=== PATIENT | female | born 1935 | race Caucasian/White ===

== ENCOUNTER → 2020-01-22 | Outpatient (CLI) | payer OTHER, MEDICARE | LOC: SJCVC 14:40 | DX: R94.31 Abnormal electrocardiogram [ECG] [EKG] (principal); I10 Essential (primary) hypertension; E78.00 Pure hypercholesterolemia, unspecified; E66.9 Obesity, unspecified; M19.90 Unspecified osteoarthritis, unspecified site; Z79.82 Long term (current) use of aspirin; Z79.899 Other long term (current) drug therapy ==

== ENCOUNTER → 2020-07-27 | Outpatient (CLI) | payer OTHER, MEDICARE | LOC: SJCVCIMAG 09:11 | PROVIDERS: ATTEND Internal Medicine Cardiovascular Disease | DX: I10 Essential (primary) hypertension (principal); I49.3 Ventricular premature depolarization; I49.1 Atrial premature depolarization; E78.49 Other hyperlipidemia ==

== ENCOUNTER → 2020-08-05 | Outpatient (CLI) | payer OTHER, MEDICARE ==
[~2020-08-05] VITALS: Ht 160 cm; Wt 81.6 kg
[~2020-08-05] MED LIST: ATORVASTATIN CA10 MG PO; CELEBREX 200 M200 MG PO; LEXAPRO 10 MG T10 MG PO; NORVASC 2.5 MG2.5 M1 PO
--- NOTE | ~2020-08-05 | D ---
[facility] [place] [address] DISCHARGE SUMMARY Name: CARLTON DO Room #: REG [facility].#: [id number] Admission: 08/05/20 Attend Phys: Srinivas Jerry MD, Discharge: Date of : 35 Report #: [id number] THIS REPORT FOR: cc: Hannah Cason MD, Jennifer L MD Mancuso, Gerald M. MD [facility] ~ THIS REPORT FOR: //name// CC: Srinivas Cason SHORT STAY SUMMARY The patient is an 85-year-old female admitted for cardiac catheterization with an abnormal stress echo suggesting some distal septal hypokinesis and some progressive fatigue with some chest pain with typical and atypical features. The stress test recently has showed a change from the exam of 2018. Also associated with late EKG changes. Compliant with medications, which have been amlodipine, atorvastatin, Lexapro and Celebrex p.r.n. PAST MEDICAL HISTORY: Positive for the hypertension, hypercholesterolemia, DJD. No prior surgeries. SOCIAL HISTORY: Social alcohol use, no drug use, never used tobacco. She lives independently. One cup of coffee a day. Does try to exercise 4 days a week. ALLERGIES: LISINOPRIL, LOSARTAN, SULFA AND TAPE. Laboratory work is unremarkable. Her lipids are favorable. FAMILY HISTORY: Mother had a stroke. Father did have premature coronary artery disease. PHYSICAL EXAM: Pleasant, alert. Blood pressure 124/64, pulse 70s. Eyes reveal xanthelasmas. Arcus senilis is noted. Pharynx is clear. NECK: Shows preserved upstrokes without JVD or bruits. LUNGS: Clear. CARDIAC: Regular rate and rhythm, S1, S2, without murmur or gallop. ABDOMEN: Soft. No HSM or abdominal bruit. EXTREMITIES: No edema. His pulses were intact. NEUROLOGIC: Nonfocal. SKIN: Warm and dry, without xanthoma or ulcer. MUSCULOSKELETAL: Generalized arthritic changes. HOSPITAL COURSE: The patient went to the catheterization lab. Coronary [address] [address] DISCHARGE SUMMARY Name: CARLTON DO Room #: [facility]#: [id number] Admission: 08/05/20 Attend Phys: Srinivas Jerry MD, Discharge: Date of : 35 Report #: [id number] angiography had mild 3-vessel disease. There was some 30-40% distal LAD disease. The right renal artery had a 30% eccentric lesion; the left renal artery was mildly diseased. The left ventricle with normal left ventricular function. She tolerated it well. Mynx closure device was utilized for right femoral artery without complication. She will be observed for fluids for 3 hours and discharged home. DISCHARGE DIAGNOSES: 1. Coronary artery disease (nonobstructive cardiac catheterization). No intervention. 2. Hypertension. 3. Hypercholesterolemia. 4. Degenerative joint disease. RECOMMENDATIONS AND PLAN: No lifting for 48 hours or lying in tub, Jacuzzi or fiore for 5 days. Followup scheduled in 6 months. Also, follow up with her primary care physician as scheduled. Thank you for asking me to assist in the care of this patient. By: [id number] Srinivas Jerry MD, FACC /nt
[2020-08-05 07:34] VITALS: BP 123/59
[2020-08-05 08:24] LABS: HEMATOCRIT 41.7 % (37.0-47.0); HEMOGLOBIN 13.4 gm/dL (12.0-15.0); MCH 27.3 pg (26.0-34.0); MCHC 32.1 g/dL (28.0-37.0); MCV 85.2 fL (80.0-100.0); RBC 4.9 mil/uL (4.20-5.00); RDW 14.9 % (10.5-14.5); WBC 5.2 thou/uL (4.0-11.0)
[2020-08-05 08:28] LABS: CALCIUM 9.2 mg/dL (8.5-10.1); CREATININE 0.8 mg/dL (0.6-1.0); POTASSIUM 4.1 mmol/L (3.5-5.1)
--- NOTE | 2020-08-05 17:08 | CATHLAB ---
[facility] [place] [address] INVASIVE PROCEDURE REPORT Name: CARLTON DO Room #: REG Carroll ClementNashDamianNash#: [id number] Admission: 08/05/20 Attend Phys: Srinivas Jerry MD, Discharge: Date of : 35 Report #: [id number] THIS REPORT FOR: cc: Hannah Cason MD, Jennifer L MD Mancuso, Gerald M. MD [facility] ~ APPROVED REPORT Study performed: 08/05/2020 07:32:44 Patient Details Patient Status: Out-Patient Room #: The patient is a 85 year-old female Event Personnel Srinivas Jerry Parts Chaser, Nafisa Quintanilla RN RN, Gloria Euceda RTR Scrub, Anila Edwards RTR Monitor Procedures Performed Left Heart Cath w/or w/o Coronaries [id number] [facility] Renal Bilateral Peripheral Angiography 8658476 CVRENALBIL Abdominal Aortography 970829 Art Access - R femoral artery* Hemostasis w/ Mynx 40561 Initial Mod Sed Same Phys/QHP Gr5y [id number] Procedure Narrative The patient was brought electively to the Cardiac Catheterization Laboratory and was prepped and draped in a sterile manner. The Right Groin^ was infiltrated with 1% Lidocaine subcutaneous anesthesia. A PINNACLE 6FR Sheath #[id number] sheath was inserted into the RFA^. Coronary angiography was performed using coronary diagnostic catheters. The right coronary system was accessed and visualized with a JR4 catheter. The left coronary system was accessed and visualized with a JL4 catheter. The left ventricle was accessed and visualized with a PIGTAIL catheter. An aortogram of the abdominal aorta was performed. Closure device was deployed with a Fr MYNXGRIP 6/7F #[id number]. The patient tolerated the procedure well and there were no complications associated with the procedure. There was no hematoma. Intraoperative Conscious Sedation Sedation start time: 8:37 Case end Time: 9:04 Fentanyl 50 mcg Versed 1 mg [facility] [place] [address] [place] [address] INVASIVE PROCEDURE REPORT Name: HICARLTON Urbano Room #: REG Flor#: [id number] Admission: 08/05/20 Attend Phys: Srinivas Jerry, Discharge: Date of : 35 Report #: [id number] Fluoro Time: 2.70 minutes Dose: DAP 5772.40 cGycm2 734 mGy Contrast Type and Amount: Visipaque 125 ml Hemodynamics The aortic pressure is 138/83 mmHg with a mean of 111 mmHg. The left ventricular pressure is 164/10 mmHg with a mean of mmHg. The left ventricular end diastolic pressure is 18 mmHg. Conclusion #1. Normal left jugular size and systolic function EF 60% #2 abdominal aortogram is intact with mild irregularities mild irregularity in the renal arteries noted. #3 left main large and free of disease giving rise to LAD and circumflex. #4 LAD is moderately diseased with eccentric 3040% proximal and 50% mid vessel lesions nonocclusive with mild calcification. #5 circumflex OM is large and nondominant but in the large vessel in distribution. No occlusive disease #6 smaller but dominant right coronary artery with diffuse irregularity #7 selective injection right renal artery has an eccentric plaque of 30% with a minimal irregularity in the left renal artery selectively injected. Recommendations and plan: Continue aggressive risk factor modification no indication for coronary intervention. <ELECTRONICALLY SIGNED> By: Srinivas Jerry MD, FACC 08/05/201707 07 07 Srinivas Jerry MD, FACC /INF
== END | disposition home or self-care (01) ==
LOC: CATH 06:27
PROVIDERS: ATTEND Internal Medicine Cardiovascular Disease
DX: I25.10 Atherosclerotic heart disease of native coronary artery without angina pectoris (principal); I70.1 Atherosclerosis of renal artery; I10 Essential (primary) hypertension; E78.00 Pure hypercholesterolemia, unspecified; E78.5 Hyperlipidemia, unspecified; M19.90 Unspecified osteoarthritis, unspecified site; E66.9 Obesity, unspecified; K21.9 Gastro-esophageal reflux disease without esophagitis; Z98.890 Other specified postprocedural states; Z79.899 Other long term (current) drug therapy; Z87.891 Personal history of nicotine dependence; Z82.49 Family history of ischemic heart disease and other diseases of the circulatory system; Z88.2 Allergy status to sulfonamides; Z91.040 Latex allergy status; Z88.8 Allergy status to other drugs, medicaments and biological substances

== ENCOUNTER → 2021-02-24 | Outpatient (CLI) | payer OTHER, MEDICARE | LOC: SJCVC 13:49 | PROVIDERS: ATTEND Internal Medicine Cardiovascular Disease | DX: R94.31 Abnormal electrocardiogram [ECG] [EKG] (principal); I49.1 Atrial premature depolarization; I25.10 Atherosclerotic heart disease of native coronary artery without angina pectoris; I10 Essential (primary) hypertension; E78.00 Pure hypercholesterolemia, unspecified; M19.90 Unspecified osteoarthritis, unspecified site; I83.893 Varicose veins of bilateral lower extremities with other complications; E78.5 Hyperlipidemia, unspecified; Z72.89 Other problems related to lifestyle; Z79.899 Other long term (current) drug therapy; Z88.2 Allergy status to sulfonamides; Z88.1 Allergy status to other antibiotic agents ==

== ENCOUNTER → 2021-03-03 | Outpatient (CLI) | payer OTHER | LOC: SJCVCIMAG 13:24 | PROVIDERS: ATTEND Internal Medicine Cardiovascular Disease | DX: M79.661 Pain in right lower leg (principal); M79.662 Pain in left lower leg; M79.89 Other specified soft tissue disorders ==

== ENCOUNTER → 2021-09-15 | Outpatient (CLI) | payer OTHER | LOC: SJCVC 14:30 | PROVIDERS: ATTEND Internal Medicine Cardiovascular Disease | DX: R94.31 Abnormal electrocardiogram [ECG] [EKG] (principal); I25.10 Atherosclerotic heart disease of native coronary artery without angina pectoris; I10 Essential (primary) hypertension; E78.00 Pure hypercholesterolemia, unspecified; M54.30 Sciatica, unspecified side; E78.5 Hyperlipidemia, unspecified; Z79.899 Other long term (current) drug therapy; Z98.890 Other specified postprocedural states; Z88.5 Allergy status to narcotic agent; Z88.1 Allergy status to other antibiotic agents; Z91.048 Other nonmedicinal substance allergy status; Z88.8 Allergy status to other drugs, medicaments and biological substances; Z87.891 Personal history of nicotine dependence ==